=== PATIENT | female | born 1965 | race Caucasian/White ===

== ENCOUNTER 2020-01-22 15:15 | Emergency (ER) | payer OTHER ==
[~2020-01-22] VITALS: Ht 165.1 cm; Wt 81.6 kg
--- NOTE | 2020-01-22 15:26 | NUR ---
IV LINE STARTED BLOOD DRAWN AND SENT TO LAB.
--- NOTE | 2020-01-22 15:28 | NUR ---
DR DELCID AT BEDSIDE FOR EVAL.
[2020-01-22 15:41] LABS: BASOPHILS # (AUTO) 0.1 /CMM (0.0-0.2); EOSINOPHILS % (AUTO) 4.1 % (0.0-6.0); HEMATOCRIT 44 % (33-45); HEMOGLOBIN 14.7 g/dL (11.5-14.8); LYMPHOCYTES # (AUTO) 2.2 /CMM (0.8-4.8); MEAN CORPUSCULAR HGB CONC 34 g/dl (31.0-36.0); MEAN CORPUSCULAR VOLUME 93 fL (82-100); MONOCYTES # (AUTO) 0.4 /CMM (0.1-1.30); MONOCYTES % (AUTO) 7.5 % (2.0-12.0); NEUTROPHILS # (AUTO) 2.9 /CMM (1.8-8.9); NEUTROPHILS % (AUTO) 49.4 % (43.0-81.0); PLATELET COUNT (AUTO) 319 /CMM (150-450); RED BLOOD CELL COUNT(AUTO) 4.68 MIL/uL (4.0-5.2); WHITE BLOOD COUNT (AUTO) 5.9 K/uL (4.3-11.0)
[2020-01-22] MEDS ORDERED: ONDANSETRON HCL/PF 4 MG/2 ML VIAL ONE (15:48)
[2020-01-22] MEDS ORDERED: KETOROLAC TROMETHAMINE INJ 30 MG/ML VIAL ONE (15:49)
[2020-01-22] MEDS: IV NS 0.9% 1,000 ML BAG IV ONE (15:49)
[2020-01-22] MEDS: KETOROLAC TROMETHAMINE INJ 30 MG/ML VIAL IV ONE (15:50)
[2020-01-22] MEDS: ONDANSETRON HCL/PF 4 MG/2 ML VIAL IVP ONE (15:50)
[2020-01-22 15:51] LABS: CREATININE 0.8 mg/dL (0.6-1.3); POTASSIUM 3.9 mmol/L (3.5-5.1)
--- NOTE | 2020-01-22 15:51 | NUR ---
PT TO RADIOLOGY FOR ABDOMINAL CT SCAN VIA [facility].
[2020-01-22 15:57] LABS: ALBUMIN 3.7 g/dL (3.4-5.0); BILIRUBIN,DIRECT 0.1 mg/dL (0.0-0.2); BILIRUBIN,TOTAL 0.3 mg/dL (0.2-1.0); TOTAL PROTEIN, SERUM 7.6 g/dL (6.4-8.2)
[2020-01-22 16:00] LABS: APPEARANCE,URINE Clear (CLEAR); BILIRUBIN,URINE Negative (NEGATIVE); BLOOD, URINE Trace-intact Ery/uL (NEGATIVE); COLOR,URINE Yellow (YELLOW); KETONES,URINE Negative (NEGATIVE); LEUKOCYTE ESTERASE ,URINE Negative (NEGATIVE); NITRITE, URINE Negative (NEGATIVE); PROTEIN,URINE Negative (NEGATIVE); UGLUCOSE Negative (NEGATIVE); UROBILINOGEN,URINE 0.2 EU/dL (0.2)
[2020-01-22 16:02] LABS: BACTERIA,URINE None seen /HPF (None Seen); SQUAMOUS EPITHELIAL CELL,UR Few /HPF (None Seen); WBC,URINE 0-2 /HPF (0-3)
[2020-01-22 16:55] VITALS: BP 115/78
--- NOTE | 2020-01-22 16:55 | NUR ---
Patient discharged to home in stable condition. Written and verbal after care instructions given. Patient verbalizes understanding of instruction.IV removed. Catheter intact and site benign. Pressure and 4x4 applied to site. No bleeding noted.
== END 2020-01-22 16:55 | disposition home or self-care (01) ==
LOC: ER 15:15
DX: R10.32 Left lower quadrant pain (principal); R10.12 Left upper quadrant pain
CPT/HCPCS: 36415; 74176; 80048; 80076; 81001; 83690; 85025; 85730; 96361; 96374; 96375; 99284; J1885; J2405; J7030; 81000-TC

== ENCOUNTER 2020-03-05 15:13 | Emergency (ER) | payer OTHER ==
[~2020-03-05] VITALS: Ht 157.5 cm; Wt 87.1 kg
[2020-03-05] MEDS ORDERED: IV NS 0.9% 1,000 ML BAG IV ONE (15:30)
[2020-03-05] MEDS ORDERED: FAMOTIDINE/PF INJ 20 MG/2 ML VIAL IV ONE ×2 (15:30→15:36)
[2020-03-05] MEDS ORDERED: ONDANSETRON HCL/PF 4 MG/2 ML VIAL IVP ONE (15:30)
[2020-03-05] MEDS ORDERED: diphenhydrAMINE HCL 50 MG/ML VIAL IV ONE (15:30)
--- NOTE | 2020-03-05 15:30 | NUR ---
C/O HEADACHE AND RIGHT ARM PAIN S/P BEE STING X1 HOUR AGO. PATIENT A/OX4, BREATHING EVEN AND UNLABORED, NO SOB NOTED, NO C/O THROAT SWELLING. PATIENT'S RIGHT ARM HAS NO SWELLING. PATIENT SEEN AND EVALUATED BY DR. ALFARO.
[2020-03-05] MEDS ORDERED: ONDANSETRON HCL/PF 4 MG/2 ML VIAL ONE (15:34)
[2020-03-05] MEDS ORDERED: diphenhydrAMINE HCL 50 MG/ML VIAL ONE (15:34)
[2020-03-05 16:07] LABS: BASOPHILS % (AUTO) 0.6 % (0.0-2.0); EOSINOPHILS % (AUTO) 2.2 % (0.0-6.0); HEMATOCRIT 40 % (33-45); HEMOGLOBIN 13.3 g/dL (11.5-14.8); LYMPHOCYTES # (AUTO) 1.7 /CMM (0.8-4.8); MEAN CORPUSCULAR HGB CONC 33 g/dl (31.0-36.0); MEAN CORPUSCULAR VOLUME 93 fL (82-100); MONOCYTES # (AUTO) 0.5 /CMM (0.1-1.30); MONOCYTES % (AUTO) 7.3 % (2.0-12.0); NEUTROPHILS # (AUTO) 4.3 /CMM (1.8-8.9); NEUTROPHILS % (AUTO) 63.9 % (43.0-81.0); PLATELET COUNT (AUTO) 302 /CMM (150-450); WHITE BLOOD COUNT (AUTO) 6.7 K/uL (4.3-11.0)
[2020-03-05 16:14] LABS: CALCIUM, SERUM 8.8 mg/dL (8.5-10.1); CREATININE 1.2 mg/dL (0.6-1.3); POTASSIUM 3.4 mmol/L (3.5-5.1)
--- NOTE | 2020-03-05 16:17 | NUR ---
PATIENT RESTING, STS SHE FEELS BETTER, HEADACHE HAS IMPROVED.
[2020-03-05 16:20] LABS: ALBUMIN 3.7 g/dL (3.4-5.0); BILIRUBIN,TOTAL 0.2 mg/dL (0.2-1.0); TOTAL PROTEIN, SERUM 7.8 g/dL (6.4-8.2)
--- NOTE | 2020-03-05 16:38 | NUR ---
PATIENT A/OX4, BREATHING EVEN AND UNLABORED, NO SOB NOTED, AMBULATORY WITH STEADY GAIT. NO DISTRESS NOTED. IV removed. Catheter intact and site benign. Pressure and 4x4 applied to site. No bleeding noted. Patient discharged to home in stable condition. Written and verbal after care instructions given. Patient verbalizes understanding of instruction.
[2020-03-05 16:40] VITALS: BP 134/95
== END 2020-03-05 16:40 | disposition home or self-care (01) ==
LOC: ER 15:15
DX: T63.441A Toxic effect of venom of bees, accidental (unintentional), initial encounter (principal); M79.641 Pain in right hand; R51.9 Headache, unspecified; R11.10 Vomiting, unspecified; Y92.89 Other specified places as the place of occurrence of the external cause
CPT/HCPCS: 36415; 80048; 80076; 83690; 85025; 96361; 96374; 96375; 99284; J1200; J2405; J3490; J7030

== ENCOUNTER 2020-06-06 13:30 | Emergency (ER) | payer OTHER ==
[~2020-06-06] VITALS: Ht 154.9 cm; Wt 81.6 kg
[2020-06-06 13:45] VITALS: BP 148/89
[2020-06-06] MEDS ORDERED: AMOX500T2 PO (14:46)
[2020-06-06] MEDS ORDERED: IBUP-1955 PO (14:47)
--- NOTE | 2020-06-06 14:53 | NUR ---
Rx provided. Patient discharged to home in stable condition. Written and verbal after care instructions given. Patient verbalizes understanding of instruction.
== END 2020-06-06 14:52 | disposition home or self-care (01) ==
LOC: ER 13:31
DX: J03.90 Acute tonsillitis, unspecified (principal); Z79.899 Other long term (current) drug therapy

== ENCOUNTER 2020-10-28 21:39 | Emergency (ER) | payer OTHER ==
[~2020-10-28] VITALS: Ht 154.9 cm; Wt 81.6 kg
[~2020-10-28 21:39] MED LIST: AMOX500T2 PO; IBUP-1955 PO
[2020-10-28 21:54] VITALS: BP 131/81
[2020-10-28] MEDS ORDERED: DIPH50CA4 PO (22:04)
[2020-10-28] MEDS ORDERED: PRED20TA PO (22:04)
[2020-10-28] MEDS ORDERED: FAMO-131 PO (22:04)
== END 2020-10-28 23:06 | disposition home or self-care (01) ==
LOC: ER 21:42
DX: L53.9 Erythematous condition, unspecified (principal); T39.315A Adverse effect of propionic acid derivatives, initial encounter; T40.425A Adverse effect of tramadol, initial encounter; Z79.899 Other long term (current) drug therapy; Y92.89 Other specified places as the place of occurrence of the external cause

== ENCOUNTER 2021-09-28 18:47 | Emergency (ER) | payer OTHER ==
[~2021-09-28] VITALS: Ht 157.5 cm; Wt 81.6 kg
[~2021-09-28 18:47] MED LIST changes: +DIPH50CA4 PO; +FAMO-131 PO; +PRED20TA PO
[2021-09-28 18:55] VITALS: BP 100/78
[2021-09-28] MEDS ORDERED: HYDROCODONE/APAP 5/325MG TABLET PO ONE (19:00)
--- NOTE | 2021-09-28 19:05 | NUR ---
CHEMICAL SUPERVISOR AT PT'S BEDSIDE
[2021-09-28] MEDS ORDERED: HYDROCODONE/APAP 5/325MG TABLET ONE (19:22)
[2021-09-28] MEDS ORDERED: HYDR-4209 PO (19:58)
--- NOTE | 2021-09-28 20:09 | NUR ---
Patient discharged to home in stable condition. Written and verbal after care instructions given. Patient verbalizes understanding of instruction.
== END 2021-09-28 20:10 | disposition home or self-care (01) ==
LOC: ER 18:50
DX: M25.531 Pain in right wrist (principal); M79.641 Pain in right hand; Z79.899 Other long term (current) drug therapy
CPT/HCPCS: 73090-TC; 73110; 73130-TC

== ENCOUNTER 2021-11-21 16:06 | Emergency (ER) | payer OTHER ==
[~2021-11-21] VITALS: Ht 160 cm; Wt 85.7 kg
[~2021-11-21 16:06] MED LIST changes: +HYDR-4209 PO
[2021-11-21] MEDS ORDERED: KETOROLAC TROMETHAMINE INJ 30 MG/ML VIAL IM ONE (17:00)
[2021-11-21] MEDS ORDERED: GUAIFENESIN/D-METHORPHAN HB 5 ML UDC PO ONE (17:00)
[2021-11-21] MEDS ORDERED: GUAIFENESIN/D-METHORPHAN HB 5 ML UDC ONE (17:27)
[2021-11-21] MEDS ORDERED: KETOROLAC TROMETHAMINE INJ 30 MG/ML VIAL ONE (17:28)
--- NOTE | 2021-11-21 17:35 | NUR ---
COVID AND INFLUENZA SWABS COLLECTED AND SENT TO LAB
[2021-11-21] MEDS ORDERED: BENZ-13 PO (18:42)
[2021-11-21] MEDS ORDERED: GUAI1TBM19 PO (18:42)
[2021-11-21] MEDS ORDERED: IBUP-1957 PO (18:42)
--- NOTE | 2021-11-21 19:27 | NUR ---
Patient discharged to home in stable condition. Written and verbal after care instructions given. Patient verbalizes understanding of instruction.
[2021-11-21 20:51] VITALS: BP 140/64
== END 2021-11-21 19:30 | disposition home or self-care (01) ==
LOC: ER 16:14
DX: B34.9 Viral infection, unspecified (principal); R51.9 Headache, unspecified; Z20.822 Contact with and (suspected) exposure to COVID-19; M54.9 Dorsalgia, unspecified
CPT/HCPCS: 99284; 71045; 87426; 96372; 87804; J1885; C9803

== ENCOUNTER 2024-05-12 16:13 | Emergency (ER) | payer OTHER ==
[~2024-05-12] VITALS: Ht 162.6 cm; Wt 81.6 kg
[~2024-05-12 16:13] MED LIST changes: +BENZ-13 PO; +GUAI1TBM19 PO; +IBUP-1957 PO
[2024-05-12 16:22] VITALS: BP 114/77; TEMP 97.9
[2024-05-12] MEDS ORDERED: IBUP-1955 PO (16:53)
[2024-05-12] MEDS ORDERED: BENZ-13 PO (16:53)
[2024-05-12] MEDS ORDERED: GUAI1TBM19 PO (16:53)
[2024-05-12 17:08] VITALS: O2SAT 99
== END 2024-05-12 17:09 | disposition home or self-care (01) ==
LOC: ER 16:14
DX: J06.9 Acute upper respiratory infection, unspecified (principal); B97.89 Other viral agents as the cause of diseases classified elsewhere; F17.200 Nicotine dependence, unspecified, uncomplicated; Z79.1 Long term (current) use of non-steroidal anti-inflammatories (NSAID); Z79.52 Long term (current) use of systemic steroids

== ENCOUNTER → 2024-10-24 | Emergency (ER) | payer OTHER ==
[~2024-10-24] VITALS: Ht 154.9 cm; Wt 81.6 kg
[~2024-10-24] MED LIST changes: +HYDR-4303 PO; +KETOROLAC TROMETHAMINE 15 MG/ML VIAL ONE; +LIDO30AD10 TP
[2024-10-24 11:05] VITALS: BP 113/81; TEMP 98.2; O2SAT 95
[2024-10-24] MEDS: KETOROLAC TROMETHAMINE 15 MG/ML VIAL IM ONE (11:22)
== END | disposition home or self-care (01) ==
LOC: ER 10:59
DX: S53.491A Other sprain of right elbow, initial encounter (principal); S43.491A Other sprain of right shoulder joint, initial encounter; M79.601 Pain in right arm; Z79.1 Long term (current) use of non-steroidal anti-inflammatories (NSAID); Z79.52 Long term (current) use of systemic steroids; Z79.899 Other long term (current) drug therapy; W18.39XA Other fall on same level, initial encounter; Y93.89 Activity, other specified; Y92.89 Other specified places as the place of occurrence of the external cause; Y99.8 Other external cause status
CPT/HCPCS: 99284; 96372; 73080; 73030; J1885

== ENCOUNTER 2025-03-02 14:54 | Emergency (ER) | payer OTHER ==
[~2025-03-02] VITALS: Ht 157.5 cm; Wt 83.0 kg
[~2025-03-02 14:54] MED LIST changes: -KETOROLAC TROMETHAMINE 15 MG/ML VIAL ONE
[2025-03-02 15:18] VITALS: BP 120/75; TEMP 98.3
[2025-03-02] MEDS ORDERED: IBUP-1953 PO (16:53)
[2025-03-02 16:58] VITALS: O2SAT 99
== END 2025-03-02 16:59 | disposition home or self-care (01) ==
LOC: ER 15:03
DX: S92.515A Nondisplaced fracture of proximal phalanx of left lesser toe(s), initial encounter for closed fracture (principal); Y93.89 Activity, other specified; W22.03XA Walked into furniture, initial encounter; Y92.89 Other specified places as the place of occurrence of the external cause; Z79.52 Long term (current) use of systemic steroids; Y99.8 Other external cause status
CPT/HCPCS: 73630-TC